=== PATIENT | male | born 1955 | race Two or more races ===

== ENCOUNTER 2023-12-11 11:23 | Outpatient (OUT) | payer MEDICARE, SELFPAY ==
[2023-12-11 12:00] LABS: Chol HDL Ratio 3.1; Cholesterol 203 mg/dL (<=200); HDL Cholesterol 65 mg/dL (40-60); Triglycerides 117 mg/dL (<=150); VLDL CHOLESTEROL 23.4 mg/dL
== END 2023-12-11 11:24 | disposition home or self-care (01) ==
LOC: LAB 11:29
PROVIDERS: Visit Provider Nurse Practitioner
DX: I48.0 Paroxysmal atrial fibrillation (principal); E78.2 Mixed hyperlipidemia
CPT/HCPCS: 36415; 80061